=== PATIENT | female | born 1985 | race Caucasian/White ===

== ENCOUNTER 2016-11-25 21:22 | Emergency (ER) | payer BC ==
[2016-11-25 21:31] VITALS: BMI 22.2
[2016-11-25] MEDS ORDERED: ACETAMINOPHEN 1000 MG/100 ML VIAL (NON FORMULARY) IVPB ONE (22:21)
[2016-11-25 22:25] LABS: BASOPHIL 0.3 % (0-2.0); EOSINOPHIL 6.1 % (0-4.5); MCH 27.8 pg (25.7-33.7); MCHC 34.5 g/dl (32.0-36.0); MEAN CELL VOLUME 80.6 fl (80-96); MEAN PLT VOLUME 7.9 fl (7.5-11.1); NEUTROPHILS 67.5 % (42.8-82.8); PLATELET COUNT 325 K/MM3 (134-434); RDW 14.1 % (11.6-15.6); WHITE BLOOD COUNT 15.6 K/mm3 (4.0-10.0)
[2016-11-25] MEDS ORDERED: ACETAMINOPHEN INJECTION 100 ML IVPB ONE (22:25)
--- NOTE | 2016-11-25 22:26 | PDOC ---
History of Present Illness - General Chief Complaint: Pain Stated Complaint: Chest Pain Time Seen by Provider: 11/25/16 21:52 - History of Present Illness Initial Comments: 11/25/16 22:26 CHIEF COMPLAINT: HISTORY OF PRESENT ILLNESS: 31 yo F with hx of preecclampsia presents to ED with chest discomfort and shortness of breath since this afternoon at 2 pm. Patient states she felt palpitations earlier today but on interview she reports she is "feeling better now" and denies any current SOB or palpitations. No recent travel or sick contacts. PAST MEDICAL HISTORY: Denies past medical history FAMILY HISTORY: Denies SOCIAL HISTORY: Denies tobacco, alcohol, illicit drug use. SURGICAL HISTORY: Denies ALLERGIES: No known drug allergies REVIEW OF SYSTEMS General/Constitutional: Denies fever or chills. Denies weakness, weight change. HEENT: Denies change in vision. Denies ear pain or discharge. Denies sore throat. Cardiovascular: Denies chest pain or shortness of breath. Respiratory: Denies cough, wheezing, or hemoptysis. Gastrointestinal: Denies nausea, vomiting, diarrhea or constipation. Denies rectal bleeding. Genitourinary: Denies dysuria, frequency, or change in urination. Musculoskeletal: Denies joint or muscle swelling or pain. Denies neck or back pain. Skin and breasts: Denies rash or easy bruising. Neurologic: Denies headache, vertigo, loss of consciousness, or loss of sensation. PHYSICAL EXAM General Appearance: Well-appearing, appropriately dressed. No apparent distress , no intoxication. HEENT: EOMI, PERRLA, normal ENT inspection, normal voice, TMs normal, pharynx normal. No conjunctival pallor. No photophobia, scleral icterus. Neck: Supple. Trachea midline. No tenderness, rigidity, carotid bruit, stridor , lymphadenopathy, or thyromegaly. Respiratory/Chest: Lungs CTAB. No shortness of breath, chest tenderness, respiratory distress, accessory muscle use. No crackles, rales, rhonchi, stridor , wheezing, dullness Cardiovascular: RRR. S1, S2. No JVD, murmur, bradycardia, tachycardia. Vascular Pulses: Dorsalis-Pedis (R): 2+, Dorsalis-Pedis (L): 2+ Gastrointestinal/Abdominal: Normal bowel sounds. Abdomen soft, non-distended. No tenderness or rebound tenderness. No organomegaly, pulsatile mass, guarding , hernia, hepatomegaly, splenomegaly. Lymphatic: No adenopathy, tenderness. Musculoskeletal/Extremities: Normal inspection. FROM of all extremities, normal capillary refill. Pelvis Stable. No CVA tenderness. No tenderness to extremities, pedal edema, swelling, erythema or deformity. Integumentary: Appropriate color, dry, warm. No cyanosis, erythema, jaundice or rash Neurologic: quality assurance monitor chassis II-XII intact. Fully oriented, alert. Appropriate mood/affect. Motor strength 5/5. No appreciable EOM palsy, facial droop or sensory deficit. 11/25/16 23:25 Past History - Past Medical History Allergies/Adverse Reactions: Allergies Allergy/AdvReac Type Severity Reaction Status Date / Time labetalol Allergy Severe Hives Verified 11/25/16 21:28 No Known Drug Allergies Allergy Verified 11/25/16 21:28 AVACADO Allergy Severe HIVES, Uncoded 09/03/15 12:20 SWOLLEN TONGUE CASHEWS Allergy Severe HIVES, Uncoded 09/03/15 12:20 SWOLLEN TONGUE DUST Allergy ITCHING, Uncoded 09/03/15 12:20 HIVES Home Medications: Ambulatory Orders Vit #108/Iron/FA [ One Tablet] 1 each PO DAILY MDD 1 07/29/15 Ibuprofen [Motrin -] 600 mg PO TID #90 tablet 09/08/15 Anemia: No Asthma: No Cancer: No Cardiac Disorders: No CVA: No COPD: No CHF: No Dementia: No Diabetes: No GI Disorders: No Disorders: No HTN: Yes ( induced HTN) Hypercholesterolemia: No Liver Disease: No Seizures: No Thyroid Disease: No - Surgical History Abdominal Surgery: No Appendectomy: No Cardiac Surgery: No Cholecystectomy: No Lung Surgery: No Neurologic Surgery: No Orthopedic Surgery: No - Suicide/Smoking/Psychosocial Hx Smoking History: Never smoked Have you smoked in the past 12 months: No Information on smoking cessation initiated: No Hx Alcohol Use: No Drug/Substance Use Hx: No Substance Use Type: None Hx Substance Use Treatment: No Cardiac Specific PMH - Complaint Specific PMHX Pacemaker: No *Physical Exam - Vital Signs Last Vital Signs Temp Pulse Resp BP Pulse Ox 98.3 F 82 20 135/80 98 11/25/16 23:05 11/25/16 23:05 11/25/16 23:05 11/25/16 23:05 11/25/16 23:05 ED Treatment Course - LABORATORY CBC & Chemistry Diagram: 11/25/16 22:19 11/25/16 22:19 - ADDITIONAL ORDERS Additional order review: Laboratory Results 11/26/16 11/25/16 11/25/16 00:15 22:19 22:19 PT with INR 11.20 INR 0.99 PTT (Actin FS) 24.5 L D-Dimer < 200 Sodium Potassium Chloride Carbon Dioxide Anion Gap BUN Creatinine Creat Clearance w eGFR Random Glucose Calcium Total Bilirubin AST ALT Alkaline Phosphatase Total Protein Albumin Urine Color Ltyellow Urine Appearance Cloudy Urine pH 7.0 Urine Protein Negative Urine Glucose (UA) Negative Urine Ketones Negative Urine Blood Negative Urine Nitrite Negative Urine Bilirubin Negative Urine Urobilinogen Negative Blood Type B POSITIVE Antibody Screen Negative 11/25/16 22:19 PT with INR INR PTT (Actin FS) D-Dimer Sodium 140 Potassium 3.7 Chloride 102 Carbon Dioxide 25 Anion Gap 13 BUN 8 D Creatinine 0.4 L Creat Clearance w eGFR > 60 Random Glucose 101 D Calcium 9.5 Total Bilirubin 0.2 AST 16 D ALT 24 Alkaline Phosphatase 86 D Total Protein 7.4 Albumin 3.5 D Urine Color Urine Appearance Urine pH Urine Protein Urine Glucose (UA) Urine Ketones Urine Blood Urine Nitrite Urine Bilirubin Urine Urobilinogen Blood Type Antibody Screen 11/25/16 22:19 RBC 4.22 MCV 80.6 MCHC 34.5 RDW 14.1 MPV 7.9 D Neutrophils % 67.5 Lymphocytes % 18.0 D Monocytes % 8.1 Eosinophils % 6.1 H D Basophils % 0.3 - Medications Given in the ED: ED Medications Discontinued Medications Generic Name Dose Route Start Last Admin Trade Name Edsonq PRN Reason Stop Dose Admin Acetaminophen 1,000 mg 11/25/16 22:21 11/25/16 22:24 Ofirmev Injection - IVPB 11/25/16 22:22 1,000 mg ONCE ONE Administration Medical Decision Making - Medical Decision Making 11/25/16 23:27 31 yo F with hx of preecclampsia presents to ED with chest discomfort and shortness of breath since this afternoon at 2 pm. Patient VS remarkable for tachycardia to 127 and BP 164/109 -EKG -CBC, CMP, PT/INR, D-dimer D-dimer <200, PERC negative Patient VS repeated. HR 102, BP 137/92. Patient denies any complaints right now and reports no chest pain or SOB. Laboratory Tests 11/25/16 11/25/16 22:19 22:19 WBC 15.6 H Eosinophils % 6.1 H D PTT (Actin FS) 24.5 L D-Dimer < 200 WBC likely elevated secondary to . Labs otherwise unremarkable. Advised patient it is imperative that she follow up with Dr. Avalos TOMORROW and of signs and symptoms for return to ER; patient verbalized understanding and agrees to plan. *DC/Admit/Observation/Transfer Diagnosis at time of Disposition: Chest discomfort - Discharge Dispostion Disposition: HOME Condition at time of disposition: Improved Admit: No - Referrals Referrals: Jose Loya MD [Primary Care Provider] - Ralph Reich MD [Staff Physician] - - Patient Instructions Printed Discharge Instructions: DI for Atypical Chest Pain, Managing Symptoms of Additional Instructions: Please follow up with Damir this week as discussed. If you develop any new chest pain, shortness of breath, palpitations, swelling in either legs, or any new or worsening symptoms, please return to the ER.
[2016-11-25 23:01] LABS: INR 0.99 (0.82-1.09)
[2016-11-25 23:03] LABS: ACTIVATED PTT 24.5 SECONDS (26.9-34.4); D-DIMER < 200 ng/ml (<200-235)
[2016-11-25 23:05] LABS: ALBUMIN 3.5 g/dl (3.4-5.0); ALK PHOS 86 U/L (45-117); ANION GAP 13 (8-16); BILIRUBIN,TOTAL 0.2 mg/dL (0.2-1.0); CALCIUM 9.5 mg/dL (8.5-10.1); CO2 25 mmol/L (21-32); CREATININE 0.4 mg/dL (0.55-1.02); GLUCOSE,RANDOM 101 mg/dL (74-106); SGOT/AST 16 U/L (15-37); SGPT/ALT 24 U/L (12-78); TOT PROT 7.4 g/dl (6.4-8.2)
[2016-11-25 23:06] VITALS: BP 135/80; PULSE 82; TEMP 98.3
[2016-11-26 00:33] LABS: URINE APPEARANCE CLOUDY; URINE BILIRUBIN NEGATIVE (NEGATIVE); URINE BLOOD NEGATIVE (NEGATIVE); URINE COLOR LTYELLOW; URINE GLUCOSE (UA) NEGATIVE (NEGATIVE); URINE KETONE NEGATIVE (NEGATIVE); URINE NITRITE NEGATIVE (NEGATIVE); URINE PROTEIN NEGATIVE (NEGATIVE); URINE UROBILINOGEN NEGATIVE mg/dL (0.2-1.0)
[2016-11-26 12:09] LABS: URINE LEUK ESTERASE Negative (NEGATIVE)
--- NOTE | 2016-11-29 07:18 | EKG ---
Test Reason : Blood Pressure : / mmHG Vent. Rate : 118 BPM Atrial Rate : 118 BPM P-R Int : 150 ms QRS Dur : 082 ms QT Int : 336 ms P-R-T Axes : 065 075 008 degrees QTc Int : 470 ms SINUS TACHYCARDIA POSSIBLE LEFT ATRIAL ENLARGEMENT NONSPECIFIC T WAVE ABNORMALITY ABNORMAL ECG NO PREVIOUS ECGS AVAILABLE Confirmed by JANNETH WAYNE, JOSE LUIS ([id number]) on 11/29/2016 7:18:39 AM Referred By: Confirmed By:JOSE LUIS LAGUNAS MD
== END 2016-11-26 01:28 | disposition home or self-care (01) ==
LOC: JER 21:22
PROC: 3E033NZ Introduction of Analgesics, Hypnotics, Sedatives into Peripheral Vein, Percutaneous Approach (ICD-10-PCS; principal; 2016-11-25)
DX: R07.89 Other chest pain (principal)
CPT/HCPCS: 36415; 80053; 81003; 85025; 85379; 85610; 85730; 86850; 86900; 86901; 87086; 93005; 93010; 99283-25

== ENCOUNTER 2017-01-30 07:48 | Emergency (ER) | payer BC ==
[2017-01-30 07:54] VITALS: BMI 23.8
--- NOTE | 2017-01-30 08:55 | PDOC ---
History of Present Illness - General Chief Complaint: Shortness of Breath Stated Complaint: SHORTNESS OF BREATH, 22 wks preg Time Seen by Provider: 01/30/17 08:19 - History of Present Illness Initial Comments: 01/30/17 08:56 The patient is a 31 year old 22 week female with a history of HTN( borderline Pre-eclampsia) during her previous who presents for evaluation of SOB and chest tightness. The patient reports onset of SOB and sternal chest tightness earlier this morning with associated cough with deep inspiration. She called her OB Dr. Reich who recommended that she present to the ED for evaluation. The patient has had multiple presentations of the same symptoms over the past few months throughout her recently seen on 12/19 for these same symptoms. Work up at that time included a negative cta, d- dimer, and dopplers to rule out pulmonary embolism. The patient states that her symptoms are the same as her prior presentations and reports improvement in her symptoms on presentation to the ER. She denies any fevers, chills, headache , nausea, vomiting, abdominal pain, changes with urination or bowel movements, recent long travel or leg swelling. Past History - Past Medical History Allergies/Adverse Reactions: Allergies Allergy/AdvReac Type Severity Reaction Status Date / Time labetalol Allergy Severe Hives Verified 01/30/17 07:54 No Known Drug Allergies Allergy Verified 01/30/17 07:54 AVACADO Allergy Severe HIVES, Uncoded 01/30/17 07:54 SWOLLEN TONGUE CASHEWS Allergy Severe HIVES, Uncoded 01/30/17 07:54 SWOLLEN TONGUE DUST Allergy ITCHING, Uncoded 01/30/17 07:54 HIVES Home Medications: Ambulatory Orders Vit #108/Iron/FA [ One Tablet] 1 each PO DAILY MDD 1 07/29/15 Nifedipine [Nifedipine ER] 30 mg PO ASDIR PRN 01/30/17 Anemia: No Asthma: No Cancer: No Cardiac Disorders: No CVA: No COPD: No CHF: No DVT: No Dementia: No Diabetes: No GI Disorders: No Disorders: No HTN: Yes ( induced HTN) Hypercholesterolemia: No Liver Disease: No Seizures: No Thyroid Disease: No - Surgical History Abdominal Surgery: No Appendectomy: No Cardiac Surgery: No Cholecystectomy: No Lung Surgery: No Neurologic Surgery: No Orthopedic Surgery: No - Reproductive History Cervical CA: No Dysfunctional Uterine Bleeding: No Ectopic : No Endometrial CA: No Polycystic Ovaries: No - Immunization History Immunization Up to Date: Yes - Suicide/Smoking/Psychosocial Hx Smoking History: Never smoked Have you smoked in the past 12 months: No Information on smoking cessation initiated: No Hx Alcohol Use: No Drug/Substance Use Hx: No Substance Use Type: None Hx Substance Use Treatment: No Review of Systems - Review of Systems Comments:: 01/30/17 09:18 Constitutional: No fevers, chills, fatigue, malaise HEENT: No Rhinorrhea, nasal congestion, visual changes Cardiovascular: Chest tightness. No syncope, palpitations, lightheadedness Respiratory: Cough, SOB. No Hemoptysis, Gastrointestinal: No Abdominal pain, Nausea, Vomiting, Constipation, Diarrhea, Melena Genitourinary: No Dysuria, Frequency, Urgency, Hesitancy, Hematuria, Flank pain Musculoskeletal: No Myalgia, arthralgia Skin: No rashes, bruising, pallor Neurologic: No Headache, Dizziness, Numbness, Weakness, or Tingling Psychiatric: No Hallucinations. No SI or HI *Physical Exam - Vital Signs Last Vital Signs Temp Pulse Resp BP Pulse Ox 98.6 F 128 H 19 159/98 98 01/30/17 07:51 01/30/17 07:51 01/30/17 07:51 01/30/17 07:51 01/30/17 07:51 - Physical Exam Comments: 01/30/17 09:20 General Appearance: Nourished. No Apparent Distress HEENT: EOMI, ADRIAN. No Pharyngeal Erythema, Tonsillar Exudate, Tonsillar Erythema Neck: No Cervical Lymphadenopathy Respiratory/Chest: Lungs Clear, Normal Breath Sounds. Mild inspiratory wheezing. No Crackles, Rales, Rhonchi, Cardiovascular: Regular Rhythm, Tachycardic. No Murmur, Gallops, Rubs Gastrointestinal/Abdominal: Normal Bowel Sounds, Soft. No Guarding, Rebound, Tenderness Musculoskeletal: No CVA Tenderness Extremity: Normal Capillary Refill Integumentary: Normal Color, Dry, Warm Neurologic: Fully Oriented, Alert, Normal Mood/Affect, Normal Response, ED Treatment Course - LABORATORY CBC & Chemistry Diagram: 01/30/17 09:10 01/30/17 09:10 - RADIOLOGY Radiology Studies Ordered: Category Date Time Status DUPLEX VASCUL US-2LEGS [US] Stat Ultrasound 01/30/17 08:49 Ordered Medical Decision Making - Medical Decision Making 01/30/17 09:22 The patient is a 31 year old 22 week female with a history of HTN( borderline Pre-eclampsia) during her previous who presents for evaluation of SOB and chest tightness. Given the patient's recent complete PE work including negative doppler, d-dimer, and CTA as well as a presentation similar to her prior presentations, it is unlikely the patient's symptoms are due to a PE at this time. However we will obtain lower extremity doppers to evaluate for DVT. We will also obtain a cbc, cmp, troponin, and UA to evaluate for other etiologies. We will continue to monitor and reassess. 01/30/17 10:35 CBC demonstrates a known leukocytosis of 15. CMP, troponin, TSH, UA are unremarkable. DVT US is negative for DVT. The patient reports significant improvement in her symptoms and her tachycardia has improved to 100. We have paged Dr. Reich to discuss the case. We are comfortable sending the patient to L&D for further management and monitoring. *DC/Admit/Observation/Transfer Diagnosis at time of Disposition: Shortness of breath, Chest discomfort - Discharge Dispostion Disposition: HOME Condition at time of disposition: Improved Admit: No - Referrals Referrals: Jose Loya MD [Primary Care Provider] - Ralph Reich MD [Staff Physician] - - Patient Instructions Printed Discharge Instructions: DI for Shortness of Breath Additional Instructions: Please return to the ER if you experience concerning or worsening symptoms including worsening chest pain, coughing up blood, or worsening difficulty breathing. You were seen in the ER for shortness of breath and chest tightness. Your ultrasound results and lab results were unremarkable. We will be sending you to labor and delivery for monitoring. Please call to schedule a follow up appointment with your ob Dr. Reich to discuss your ER visit and further management of your symptoms. within 1 week. - Post Discharge Activity
[2017-01-30 09:17] LABS: BASO % 0.2 % (0-2.0); EOS % 4.2 % (0-4.5); MCH 27.4 pg (25.7-33.7); MCHC 33.3 g/dl (32.0-36.0); MEAN CELL VOLUME 82.3 fl (80-96); MEAN PLT VOLUME 8.3 fl (7.5-11.1); NEUT % 75.1 % (42.8-82.8); PLATELET COUNT 248 K/MM3 (134-434); RDW 14.4 % (11.6-15.6); WHITE BLOOD COUNT 15.6 K/mm3 (4.0-10.0)
[2017-01-30 09:21] LABS: URINE APPEARANCE CLOUDY; URINE BILIRUBIN NEGATIVE (NEGATIVE); URINE BLOOD NEGATIVE (NEGATIVE); URINE COLOR YELLOW; URINE GLUCOSE (UA) NEGATIVE (NEGATIVE); URINE KETONE NEGATIVE (NEGATIVE); URINE LEUK ESTERASE NEGATIVE (NEGATIVE); URINE NITRITE NEGATIVE (NEGATIVE); URINE PROTEIN NEGATIVE (NEGATIVE); URINE UROBILINOGEN NEGATIVE mg/dL (0.2-1.0)
[2017-01-30 09:33] LABS: ALBUMIN 3.1 g/dl (3.4-5.0); ALK PHOS 115 U/L (45-117); ANION GAP 9 (8-16); BILIRUBIN,TOTAL 0.1 mg/dL (0.2-1.0); CALCIUM 9.2 mg/dL (8.5-10.1); CO2 24 mmol/L (21-32); CREATININE 0.4 mg/dL (0.55-1.02); GLUCOSE,RANDOM 112 mg/dL (74-106); SGOT/AST 16 U/L (15-37); SGPT/ALT 20 U/L (12-78); TOT PROT 7.3 g/dl (6.4-8.2)
[2017-01-30 09:36] LABS: CPK 83 IU/L (26-192); TROPONIN I < 0.02 ng/ml (0.00-0.05)
--- NOTE | 2017-01-30 10:43 | PDOC ---
Attending Attestation - Resident Resident Name: MinnieZaid - ED Attending Attestation I have performed the following: I have examined & evaluated the patient, The case was reviewed & discussed with the resident, I agree w/resident's findings & plan, Exceptions are as noted - HPI HPI: 01/30/17 10:27 31-year-old female 22 weeks gestation with elevated blood pressures taking atropine as needed based on blood pressure readings presents with a third episode of palpitations. Prior ED visits with notable tachycardia and elevated blood pressures, PE has been ruled out via d-dimer, bilateral leg Dopplers, and most recently CTA chest. Patient's symptoms are improving now, notably hypertensive and tachycardic at triage. - Physicial Exam PE: 01/30/17 10:28 Vitals as noted, on my examination heart rate improved to 100 Exam is normal, lungs are clear, abdomen is gravid without tenderness, no signs of DVT - Medical Decision Making 01/30/17 10:29 Patient seen and evaluated with the resident. I agree with the overall evaluation, assessment, and management with the following summary of visit: 31y/o F 22wk gestation complicated by elevated BP readings with several negative PE workups presents now with similar exacerbation of palpitations. Low suspicion for PE given the negative workups with similar symptoms, ? pre- eclampsia, no Ob complaints. labs wnl, including TSH UA clear of protein repeat doppler negative VS normalized in the ED feels well, without complaints. Will transfer to L&D for further monitoring, discuss with Dr. Reich. 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
[2017-01-30 11:50] VITALS: TEMP 98.7
[2017-01-30 11:56] VITALS: BP 129/82; PULSE 105
[2017-01-30 14:38] LABS: URINE LEUK ESTERASE Negative (NEGATIVE)
--- NOTE | 2017-01-31 01:24 | EKG ---
Test Reason : Blood Pressure : / mmHG Vent. Rate : 118 BPM Atrial Rate : 118 BPM P-R Int : 114 ms QRS Dur : 082 ms QT Int : 334 ms P-R-T Axes : 065 074 014 degrees QTc Int : 468 ms SINUS TACHYCARDIA POSSIBLE LEFT ATRIAL ENLARGEMENT NONSPECIFIC T WAVE ABNORMALITY ABNORMAL ECG WHEN COMPARED WITH ECG OF 30-JAN-2017 08:09, NO SIGNIFICANT CHANGE WAS FOUND Confirmed by JOSE LUIS LAGUNAS MD ([id number]) on 01/31/2017 1:24:07 AM Referred By: Confirmed By:JOSE LUIS LAGUNAS MD
== END 2017-01-30 12:13 | disposition home or self-care (01) ==
LOC: JER 07:48
DX: O26.892 Other specified pregnancy related conditions, second trimester (principal); R07.1 Chest pain on breathing; R06.02 Shortness of breath; Z3A.22 22 weeks gestation of pregnancy
CPT/HCPCS: 36415; 80053; 81003; 82550; 84443; 84484; 85025; 93005; 93010; 93970-TC; 99283-25

== ENCOUNTER 2017-03-21 11:50 | Inpatient (IN) | payer BC ==
[2017-03-21 12:38] LABS: URINE APPEARANCE SLCLOUDY; URINE BILIRUBIN NEGATIVE (NEGATIVE); URINE BLOOD NEGATIVE (NEGATIVE); URINE COLOR YELLOW; URINE GLUCOSE (UA) NEGATIVE (NEGATIVE); URINE KETONE NEGATIVE (NEGATIVE); URINE LEUK ESTERASE NEGATIVE (NEGATIVE); URINE NITRITE NEGATIVE (NEGATIVE); URINE UROBILINOGEN NEGATIVE mg/dL (0.2-1.0)
[2017-03-21 12:44] LABS: URINE PROTEIN 2+ (NEGATIVE)
[2017-03-21 12:48] LABS: EPI CELLS RARE /HPF (FEW); URINE HYALINE CAST 1 /lpf; URINE MUCUS RARE
[2017-03-21 13:01] LABS: BASO % 0.4 % (0-2.0); EOS % 1.6 % (0-4.5); HEMOGLOBIN 12.1 GM/dL (10.7-15.3); LYMPH % 15.8 % (8-40); MCH 26.6 pg (25.7-33.7); MCHC 32.7 g/dl (32.0-36.0); MEAN CELL VOLUME 81.5 fl (80-96); MEAN PLT VOLUME 10.3 fl (7.5-11.1); MONO % 8.4 % (3.8-10.2); NEUT % 73.8 % (42.8-82.8); PLATELET COUNT 201 K/MM3 (134-434); RBC 4.54 M/mm3 (3.60-5.2); RDW 14.7 % (11.6-15.6); WHITE BLOOD COUNT 13.6 K/mm3 (4.0-10.0)
[2017-03-21 13:22] LABS: ALBUMIN 3.1 g/dl (3.4-5.0); ANION GAP 9 (8-16); BLOOD UREA NITROGEN 10 mg/dL (7-18); CALCIUM 9.9 mg/dL (8.5-10.1); CHLORIDE 99 mmol/L (98-107); CO2 29 mmol/L (21-32); CREATININE 0.4 mg/dL (0.55-1.02); GLUCOSE,RANDOM 73 mg/dL (74-106); POTASSIUM 4.4 mmol/L (3.5-5.1); SGOT/AST 20 U/L (15-37); SGPT/ALT 21 U/L (12-78); SODIUM 137 mmol/L (136-145); URIC ACID 3.5 mg/dL (2.6-7.2)
[2017-03-21 13:23] LABS: ALK PHOS 138 U/L (45-117); BILIRUBIN,TOTAL 0.4 mg/dL (0.2-1.0); LDH 251 U/L (84-246); TOT PROT 7.3 g/dl (6.4-8.2)
[2017-03-21] MEDS ORDERED: BETAMET ACET/BETAMET NA PH 30 MG/5 ML VIAL IM ONE (14:45)
[2017-03-21] MEDS ORDERED: BETAMET ACET/BETAMET NA PH 30 MG/5 ML VIAL ONE (15:20)
[2017-03-21] MEDS ORDERED: ELECTROLYTE-148 SOLN 1,000 ML IV SCH (15:30)
[2017-03-21 16:25] VITALS: BMI 26.6
[2017-03-21 16:52] LABS: INR 1.01 (0.82-1.09); PROTHROMBIN TIME (PATIENT) 11.4 SEC (9.98-11.88)
[2017-03-21 16:57] LABS: ANION GAP 9 (8-16); CALCIUM 9.1 mg/dL (8.5-10.1); CHLORIDE 102 mmol/L (98-107); CO2 25 mmol/L (21-32); CREATININE 0.4 mg/dL (0.55-1.02); GLUCOSE,RANDOM 74 mg/dL (74-106); POTASSIUM 4.4 mmol/L (3.5-5.1); SODIUM 136 mmol/L (136-145)
--- NOTE | 2017-03-21 18:22 | HP ---
Past Medical History - Primary Care Physician PCP:: Ralph Reich - Admission Chief Complaint: 32yo P1 with at EGA 29 3/7 wks with chronic HTN admitted to L&D for evaluation of possible superimposed preeclampsia. History of Present Illness: chronic HTN, using Procardia at home. Did not take the meds today. Asymptomatic today but has had headaces every day x 1 week Denies LOF or VB Known placenta previa and accreta. Pt is scheduled to see MFM at [facility] for transfer of care. History Source: Patient, Medical Record Limitations to Obtaining History: No Limitations - Past Medical History FUNERAL ARRANGER: No: Alzheimer's, CVA, Dementia, Migraine, Multiple Sclerosis, Peripheral Neuropathy, Parkinson's, Seizure, Syncope, TIA, Vertigo, Other Cardiovascular: Yes: HTN Pulmonary: No: Asthma, Bronchitis, Cancer, COPD, O2 Dependent, Pneumonia, Previously Intubated, Pulmonary Embolus, Pulmonary Fibrosis, Sleep Apnea, Other Gastrointestinal: No: Ascites, Cancer, Constipation, Crohn's Disease, Diverticulitis, Diverticulosis, Esophageal Varices, Gastritis, GERD, GI Bleed, Hemorrhoids, Hiatal Hernia, Inflamatory Bowel Disease, Irritable Bowel Disease, Pancreatitis, Peptic Ulcer Disease, Ulcerative Colitis, Other Hepatobiliary: No: Cirrhosis, Cholelithiasis, Cholecystitis, Choledocholithiasis , Hepatitis A, Hepatitis B, Hepatitis C, Other Renal/: No: Renal Failure, Renal Inusuff, BPH, Cancer, Hematuria, Hemodialysis , Neurogenic Bladder, Renal Calculi, UTI, Other Reproductive: No: Ectopic , Endometriosis, Fibroids, PID, Polycystic Ovary Syndrome, Postmenopausal, Other ...: 3 ...Para: 1 (Primary C/S at 36wks for PEC) ...Term: 1 ...: 0 ...Spon : 1 ...Induced : 0 ...Multiple Gestation: 0 ...LMP: 08/23/16 ... Weeks Gestation by Dates: 29.3 ...EDC by Dates: 05/30/17 ...EDC by Sono: 06/03/17 Heme/Onc: No: Anemia, B12 Deficiency, Bleeding Disorder, Cancer, Current Chemotherapy, Current Radiation Therapy, Hemochromatosis, Hypercoaguable State, Myeloproliferative Synd, Sickle Cell Disease, Sickle Cell Trait, Thrombocytopenia, Other Infectious Disease: No: AIDS, C-Diff, Herpes Zoster, HIV, MRSA, STD's, Tuberculosis, VREF, Other Psych: No: Addictions, Anxiety, Bipolar, Depression, Panic, Psychosis, Schizophrenia, Other Musculoskeletal: No: Bursitis, Chronic low back pain, Hemiparesis, Hemiplegia, Osteoarthritis, Paraplegia, Other Rheumatology: No: Fibromyalgia, Gout, Lupus, Rheumatoid Arthritis, Sarcoidosis, Vasculitis, Other ENT: No: Allergic Rhinitis, Sinusitis, Other Endocrine: No: Hidalgo's Disease, Edmond's Disease, Diabetes Insipidus, Diabetes Mellitus, Hyperparathyroidism, Hyperthyroidism, Hypothyroidism, Osteopenia, SIADH, Other Dermatology: No: Basal Cell, Cellulitis, Eczema, Melanoma, Psoriasis, Squamous Cell, Other - Past Surgical History Past Surgical History: Yes: (for PEC at 36wks) Hx Myomectomy: No Hx Transabdominal Cerclage: No - Smoking History Smoking history: Never smoked Have you smoked in the past 12 months: No - Alcohol/Substance Use Hx Alcohol Use: No History of Substance Use: reports: None - Social History Usual Living Arrangement: Yes: With Spouse, With Child ADL: Independent 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 History of Recent Travel: No Home Medications - Allergies Allergies/Adverse Reactions: Allergies Allergy/AdvReac Type Severity Reaction Status Date / Time labetalol Allergy Severe Hives Verified 03/04/17 16:43 AVACADO Allergy Severe HIVES, Uncoded 03/04/17 16:43 SWOLLEN TONGUE CASHEWS Allergy Severe HIVES, Uncoded 03/04/17 16:43 SWOLLEN TONGUE DUST Allergy ITCHING, Uncoded 03/04/17 16:43 HIVES - Home Medications Home Medications: Ambulatory Orders Vit 108/Iron/Folic AC [ One Tablet] 1 each PO DAILY MDD 1 07/28 Nifedipine [Nifedipine ER] 30 mg PO ASDIR PRN 01/30/17 Review of Systems - Review of Systems Constitutional: reports: No Symptoms Eyes: reports: No Symptoms HENT: reports: No Symptoms Neck: reports: No Symptoms Cardiovascular: reports: No Symptoms Respiratory: reports: No Symptoms Gastrointestinal: reports: No Symptoms Genitourinary: reports: No Symptoms Breasts: reports: No Symptoms Reported Musculoskeletal: reports: No Symptoms Integumentary: reports: No Symptoms Neurological: reports: No Symptoms Endocrine: reports: No Symptoms Hematology/Lymphatic: reports: No Symptoms Psychiatric: reports: No Symptoms Pain Intensity: 0 Physical Exam - Maternity Vital Signs: Vital Signs Temperature 97.7 F 03/21/17 18:05 Pulse Rate 95 H 03/21/17 18:05 Respiratory Rate 20 03/21/17 18:05 Blood Pressure 165/89 03/21/17 18:05 O2 Sat by Pulse Oximetry (%) Constitutional: Yes: Well Nourished, No Distress, Calm Eyes: Yes: WNL, Conjunctiva Clear, EOM Intact HENT: Yes: WNL, Atraumatic, Normocephalic Neck: Yes: WNL, Supple, Trachea Midline Cardiovascular: Yes: WNL, Regular Rate and Rhythm Lungs: Clear to auscultation, Normal air movement Breast(s): Yes: WNL - Abdominal Exam/OB Fundal Height: 30 Number of Fetuses: Single Contractions: No - Vaginal Exam/OB Vaginal Bleediing: No Station: -4 - Physical Exam Musculoskeletal: Yes: WNL Extremities: Yes: WNL Edema: No Integumentary: Yes: WNL Deep Tendon Reflex Grade: Normal +2 ...Motor Strength: WNL Psychiatric: Yes: WNL, Alert, Oriented - Labs Lab Results: CBC, BMP 03/21/17 12:40 03/21/17 15:00 Hemorrhage Risk Assessment - Risk Factors Medium Risk Factors: Yes: Prior , uterine surgery,or multiple laparotomies High Risk Factors: Yes: Placenta previa, low lying, Suspected accreta/ percreta Risk Score: 5 Risk Level: High Risk Imaging - Results Ultrasound: Report Reviewed Assessment/Plan 32yo P1 with at EGA 29 3/7 wks with chronic HTN admitted to L&D for evaluation of possible superimposed preeclampsia. Pt was admitted to L&D Labs are normal BP is very high, in severe preeclampsia range. She was given Mag Sulphate IV and the BP came down to 147/90's range. Plan to monitor BP and arrange for transfer to [facility].
[2017-03-21] MEDS ORDERED: MAGNESIUM 4GM/H20 - 4 GM/100 ML IVPB IVPB SCH (18:30)
[2017-03-21] MEDS ORDERED: hydrALAZINE HCL 20 MG/ML VIAL ONE (18:30)
[2017-03-21] MEDS ORDERED: MAGNESIUM 4GM/H20 - 4 GM/100 ML IVPB IVPB ONE (18:30)
[2017-03-21] MEDS ORDERED: MAGNESIUM SULFATE 20GM/500ML - 20 GM/500 ML INFUS.BAG IVPB SCH (18:30)
[2017-03-21] MEDS ORDERED: hydrALAZINE HCL 20 MG/ML VIAL IVPUSH ONE (18:45)
[2017-03-21] MEDS ORDERED: MAGNESIUM SULFATE 20GM/500ML - 20 GM/500 ML INFUS.BAG ONE (19:03)
[2017-03-21 20:45] VITALS: TEMP 98
[2017-03-21 22:11] VITALS: BP 125/93; PULSE 104
[2017-03-21 22:51] LABS: BLOOD UREA NITROGEN 11 mg/dL (7-18)
== END 2017-03-21 21:50 | disposition short-term general hospital (02) | DRG 782 ==
LOC: JDEL 11:50 → JLDR 14:30
PROVIDERS: ADMIT Obstetrics & Gynecology; ATTEND Obstetrics & Gynecology
DX: O14.14 Severe pre-eclampsia complicating childbirth (principal); Z3A.29 29 weeks gestation of pregnancy
CPT/HCPCS: 36415; 80048; 80053; 81003; 81015; 83615; 84550; 85025; 85384; 85610; 85730; 86850; 86900; 86901; 96372

== ENCOUNTER 2017-11-30 19:29 | Emergency (ER) | payer BC ==
[2017-11-30 20:15] VITALS: TEMP 98.7; BMI 23.8
--- NOTE | 2017-11-30 20:18 | PDOC ---
Rapid Medical Evaluation Time Seen by Provider: 11/30/17 20:13 Medical Evaluation: Allergies Allergy/AdvReac Type Severity Reaction Status Date / Time labetalol Allergy Severe Hives Verified 03/04/17 16:43 AVACADO Allergy Severe HIVES, Uncoded 03/04/17 16:43 SWOLLEN TONGUE CASHEWS Allergy Severe HIVES, Uncoded 03/04/17 16:43 SWOLLEN TONGUE DUST Allergy ITCHING, Uncoded 03/04/17 16:43 HIVES 11/30/17 20:14 Pt presents to the ED for headache, high bp and palpitations since yesterday. States she saw her doctors for here symptoms yesterday and said if they persisted to return to the ED for further evaluation Exam: BP190/112, No gross neuro deficits Orders: Labs, EKG Pt to proceed to ED for further evaluation Discharge Disposition - Diagnosis Palpitations - Referrals - Patient Instructions - Post Discharge Activity
[2017-11-30 21:31] LABS: BASO % 0.3 % (0-2.0); EOS % 4.4 % (0-4.5); HEMATOCRIT 39.6 % (32.4-45.2); HEMOGLOBIN 13.4 GM/dL (10.7-15.3); LYMPH % 25.4 % (8-40); MCH 26.9 pg (25.7-33.7); MCHC 33.9 g/dl (32.0-36.0); MEAN CELL VOLUME 79.3 fl (80-96); MEAN PLT VOLUME 8.2 fl (7.5-11.1); MONO % 7.1 % (3.8-10.2); NEUT % 62.8 % (42.8-82.8); PLATELET COUNT 334 K/MM3 (134-434); RBC 4.99 M/mm3 (3.60-5.2); WHITE BLOOD COUNT 10.9 K/mm3 (4.0-10.0)
[2017-11-30] MEDS ORDERED: NIFEdipine 10 MG CAPSULE (FP) PO ONE (21:37)
[2017-11-30] MEDS ORDERED: METOCLOPRAMIDE HCL INJECTION 10 MG/2 ML VIAL IVPUSH ONE (21:37)
[2017-11-30] MEDS ORDERED: ACETAMINOPHEN 1000 MG/100 ML VIAL (NON FORMULARY) IVPB ONE (21:38)
[2017-11-30 21:40] LABS: URINE APPEARANCE SLCLOUDY; URINE BILIRUBIN NEGATIVE (<2.0 mg/dL); URINE COLOR YELLOW; URINE GLUCOSE (UA) NEGATIVE (NEGATIVE); URINE KETONE NEGATIVE (NEGATIVE); URINE LEUK ESTERASE NEGATIVE (NEGATIVE); URINE NITRITE NEGATIVE (NEGATIVE); URINE PROTEIN NEGATIVE (NEGATIVE)
[2017-11-30] MEDS ORDERED: ACETAMINOPHEN INJECTION 100 ML IVPB ONE (21:43)
[2017-11-30] MEDS ORDERED: METOCLOPRAMIDE HCL INJECTION 10 MG/2 ML VIAL ONE (21:43)
[2017-11-30 22:22] LABS: ALBUMIN 3.8 g/dl (3.4-5.0); ALK PHOS 153 U/L (45-117); ANION GAP 4 MMOL/L (8-16); BILIRUBIN,TOTAL 0.2 mg/dL (0.2-1); BLOOD UREA NITROGEN 9 mg/dL (7-18); CALCIUM 9.1 mg/dL (8.5-10.1); CHLORIDE 105 mmol/L (98-107); CO2 27 mmol/L (21-32); CREATININE 0.6 mg/dL (0.55-1.3); GLUCOSE,RANDOM 105 mg/dL (74-106); MAGNESIUM 2.2 mg/dL (1.8-2.4); POTASSIUM 3.9 mmol/L (3.5-5.1); SGOT/AST 16 U/L (15-37); SGPT/ALT 27 U/L (13-61); SODIUM 137 mmol/L (136-145)
[2017-11-30 22:37] LABS: INR 1.09 (0.83-1.09); PROTHROMBIN TIME (PATIENT) 12.9 SEC (9.7-13.0)
[2017-11-30 23:52] VITALS: BP 140/92; PULSE 81
--- NOTE | 2017-12-01 01:51 | PDOC ---
History of Present Illness - General Chief Complaint: Palpitations Stated Complaint: PALPITATIONS Time Seen by Provider: 11/30/17 20:13 Past History - Past Medical History Allergies/Adverse Reactions: Allergies Allergy/AdvReac Type Severity Reaction Status Date / Time labetalol Allergy Severe Hives Verified 11/30/17 20:18 AVACADO Allergy Severe HIVES, Uncoded 11/30/17 20:18 SWOLLEN TONGUE CASHEWS Allergy Severe HIVES, Uncoded 11/30/17 20:18 SWOLLEN TONGUE DUST Allergy ITCHING, Uncoded 11/30/17 20:18 HIVES Home Medications: Ambulatory Orders Vit 108/Iron/Folic AC [ One Tablet] 1 each PO DAILY MDD 1 07/28 Nifedipine [Nifedipine ER] 30 mg PO ASDIR PRN 01/30/17 Anemia: No Asthma: No Cancer: No Cardiac Disorders: No CVA: No COPD: No CHF: No DVT: No Dementia: No Diabetes: No GI Disorders: No Disorders: No HTN: Yes Hypercholesterolemia: No Liver Disease: No Seizures: No Thyroid Disease: No Other medical history: PRE ECLAMPSIA - Surgical History Abdominal Surgery: No Appendectomy: No Cardiac Surgery: No Cholecystectomy: No Lung Surgery: No Neurologic Surgery: No Orthopedic Surgery: No - Reproductive History Cervical CA: No Dysfunctional Uterine Bleeding: No Ectopic : No Endometrial CA: No Polycystic Ovaries: No - Immunization History Immunization Up to Date: Yes - Suicide/Smoking/Psychosocial Hx Smoking History: Never smoked Have you smoked in the past 12 months: No Hx Alcohol Use: No Drug/Substance Use Hx: No Substance Use Type: None Hx Substance Use Treatment: No *Physical Exam - Vital Signs Last Vital Signs Temp Pulse Resp BP Pulse Ox 98.7 F 81 20 140/92 99 11/30/17 20:12 11/30/17 23:51 11/30/17 23:51 11/30/17 23:51 11/30/17 23:51 ED Treatment Course - LABORATORY CBC & Chemistry Diagram: 11/30/17 21:16 11/30/17 21:16 - ADDITIONAL ORDERS Additional order review: Laboratory Results 11/30/17 11/30/17 11/30/17 21:16 21:16 21:15 PT with INR 12.90 INR 1.09 Sodium 137 Potassium 3.9 Chloride 105 Carbon Dioxide 27 Anion Gap 4 L BUN 9 Creatinine 0.6 Creat Clearance w eGFR > 60 Random Glucose 105 Calcium 9.1 Magnesium 2.2 Total Bilirubin 0.2 AST 16 ALT 27 Alkaline Phosphatase 153 H Creatine Kinase Troponin I Total Protein 8.0 Albumin 3.8 TSH 0.89 Urine Color Urine Appearance Urine pH Ur Specific [place] Urine Protein Urine Glucose (UA) Urine Ketones Urine Blood Urine Nitrite Urine Bilirubin Urine Urobilinogen Ur Leukocyte Esterase Urine HCG, Qual Negative 11/30/17 11/30/17 21:15 21:00 PT with INR INR Sodium Potassium Chloride Carbon Dioxide Anion Gap BUN Creatinine Creat Clearance w eGFR Random Glucose Calcium Magnesium Total Bilirubin AST ALT Alkaline Phosphatase Creatine Kinase 142 Troponin I < 0.02 Total Protein Albumin TSH Urine Color Yellow Urine Appearance Slcloudy Urine pH 6.0 D Ur Specific [place] 1.027 Urine Protein Negative Urine Glucose (UA) Negative Urine Ketones Negative Urine Blood Negative Urine Nitrite Negative Urine Bilirubin Negative Urine Urobilinogen 2.0 H Ur Leukocyte Esterase Negative Urine HCG, Qual 11/30/17 21:16 RBC 4.99 MCV 79.3 L MCHC 33.9 RDW 14.0 MPV 8.2 D Neutrophils % 62.8 Lymphocytes % 25.4 D Monocytes % 7.1 Eosinophils % 4.4 D Basophils % 0.3 - RADIOLOGY Radiology Studies Ordered: Category Date Time Status HEAD CT WITHOUT CONTRAST [CT] Stat CT Scan 12/01/17 01:00 Taken - Medications Given in the ED: ED Medications Discontinued Medications Generic Name Dose Route Start Last Admin Trade Name Freq PRN Reason Stop Dose Admin Acetaminophen 1,000 mg 11/30/17 21:38 11/30/17 21:50 Ofirmev Injection - IVPB 11/30/17 21:39 1,000 mg ONCE ONE Administration Diphenhydramine HCl 25 mg 11/30/17 22:22 11/30/17 22:24 Benadryl Injection - IVPUSH 11/30/17 22:23 25 mg ONCE ONE Administration Metoclopramide HCl 10 mg 11/30/17 21:37 11/30/17 21:50 Reglan Injection - IVPUSH 11/30/17 21:38 10 mg ONCE ONE Administration Nifedipine 10 mg 11/30/17 21:37 11/30/17 22:15 Procardia Capsule - PO 11/30/17 21:38 10 mg ONCE ONE Administration *DC/Admit/Observation/Transfer Diagnosis at time of Disposition: Palpitations Headache Qualifiers: Headache chronicity pattern: acute headache Intractability: not intractable - Discharge Dispostion Disposition: HOME Condition at time of disposition: Good Decision to Admit order: No - Referrals Referrals: Jose Loya MD [Primary Care Provider] - - Patient Instructions Printed Discharge Instructions: DI for Headache, DI for Palpitations Additional Instructions: Return to the ED for severe pain, pain with fever, passing out or confusion, weakness on one side of the body or face. Make sure that you follow up with your doctor, and that you restart your nifedipine. - Post Discharge Activity
--- NOTE | 2017-12-01 09:25 | EKG ---
Test Reason : Blood Pressure : / mmHG Vent. Rate : 098 BPM Atrial Rate : 098 BPM P-R Int : 148 ms QRS Dur : 080 ms QT Int : 334 ms P-R-T Axes : 069 061 -34 degrees QTc Int : 426 ms NORMAL SINUS RHYTHM POSSIBLE LEFT ATRIAL ENLARGEMENT T WAVE ABNORMALITY, CONSIDER INFERIOR ISCHEMIA ABNORMAL ECG WHEN COMPARED WITH ECG OF 30-JAN-2017 08:09, T WAVE INVERSION NOW EVIDENT IN ANTERIOR LEADS Confirmed by LEONILA HUI MD ([id number]) on 12/01/2017 9:25:29 AM Referred By: Confirmed By:LEONILA HUI MD
== END 2017-12-01 02:00 | disposition home or self-care (01) ==
LOC: JER 19:29
PROC: 3E033NZ Introduction of Analgesics, Hypnotics, Sedatives into Peripheral Vein, Percutaneous Approach (ICD-10-PCS; principal; 2017-11-30)
PROC: 3E033GC Introduction of Other Therapeutic Substance into Peripheral Vein, Percutaneous Approach (ICD-10-PCS; 2017-11-30)
PROC: 3E033GC Introduction of Other Therapeutic Substance into Peripheral Vein, Percutaneous Approach (ICD-10-PCS; 2017-11-30)
DX: I10 Essential (primary) hypertension (principal); R00.2 Palpitations; R51 Headache
CPT/HCPCS: 36415; 70450-TC; 71046-TC-FY; 80053; 81003; 82550; 83735; 84443; 84484; 84703; 85025; 85610; 93005; 93010; 99284-25; J0131

== ENCOUNTER 2018-02-14 12:45 | Emergency (ER) | payer BC ==
[2018-02-14 13:02] VITALS: BMI 23.4
--- NOTE | 2018-02-14 13:35 | PDOC ---
History of Present Illness - General Chief Complaint: Blood Pressure Problem Stated Complaint: Blood Pressure Problem Time Seen by Provider: 02/14/18 13:03 - History of Present Illness Initial Comments: 02/14/18 14:17 Patient is a 33 yo female w/ pmh of HTN and pre-eclampsia during previous (still on antihypertensives) who presents for evaluation of headache this morning. Patient reports she took tylenol and went to work whereupon her headache got worse and was complicated with spots in vision and chest tightness (now resolved). Patient reports she took BP at work and noted it to be elevated to 150's as well. Presents to ER upon advice of PCP. The patient denies chest pain, shortness of breath, and dizziness. Denies fever , chills, nausea, vomit, diarrhea and constipation. Denies dysuria, frequency, urgency and hematuria. Past History - Past Medical History Allergies/Adverse Reactions: Allergies Allergy/AdvReac Type Severity Reaction Status Date / Time labetalol Allergy Severe Hives Verified 11/30/17 20:18 AVACADO Allergy Severe HIVES, Uncoded 11/30/17 20:18 SWOLLEN TONGUE CASHEWS Allergy Severe HIVES, Uncoded 11/30/17 20:18 SWOLLEN TONGUE DUST Allergy ITCHING, Uncoded 11/30/17 20:18 HIVES Home Medications: Ambulatory Orders Azilsartan Medoxomil [Edarbi] 80 mg PO DAILY 02/14/18 Nifedipine [Procardia Xl] 60 mg PO DAILY 02/14/18 Anemia: No Asthma: No Cancer: No Cardiac Disorders: No CVA: No COPD: No CHF: No DVT: No Dementia: No Diabetes: No GI Disorders: No Disorders: No HTN: Yes Hypercholesterolemia: No Liver Disease: No Seizures: No Thyroid Disease: No - Surgical History Abdominal Surgery: No Appendectomy: No Cardiac Surgery: No Cholecystectomy: No Lung Surgery: No Neurologic Surgery: No Orthopedic Surgery: No - Reproductive History Cervical CA: No Dysfunctional Uterine Bleeding: No Ectopic : No Endometrial CA: No Polycystic Ovaries: No - Immunization History Immunization Up to Date: Yes - Suicide/Smoking/Psychosocial Hx Smoking History: Never smoked Have you smoked in the past 12 months: No Hx Alcohol Use: No Drug/Substance Use Hx: No Substance Use Type: None Hx Substance Use Treatment: No Review of Systems - Review of Systems Comments:: 02/14/18 14:19 GENERAL/CONSTITUTIONAL: No fever or chills. No weakness. HEAD, EYES, EARS, NOSE AND THROAT: +Spots in vision now resolved. No ear pain or discharge. No sore throat. CARDIOVASCULAR: +Chest pressure now resolved. No shortness of breath RESPIRATORY: No cough, wheezing, or hemoptysis. GASTROINTESTINAL: No nausea, vomiting, diarrhea or constipation. GENITOURINARY: No dysuria, frequency, or change in urination. MUSCULOSKELETAL: No joint or muscle swelling or pain. No neck or back pain. SKIN: No rash NEUROLOGIC: +Headache as described. No vertigo, loss of consciousness, or change in strength/sensation. ENDOCRINE: No increased thirst. No abnormal weight change HEMATOLOGIC/LYMPHATIC: No anemia, easy bleeding, or history of blood clots. ALLERGIC/IMMUNOLOGIC: No hives or skin allergy. *Physical Exam - Vital Signs Last Vital Signs Temp Pulse Resp BP Pulse Ox 92 H 18 129/82 100 02/14/18 13:29 02/14/18 13:29 02/14/18 13:29 02/14/18 13:29 - Physical Exam Comments: 02/14/18 14:20 GENERAL: Awake, alert, and fully oriented, in no acute distress HEAD: No signs of trauma, normocephalic, atraumatic EYES: PERRLA, EOMI, sclera anicteric, conjunctiva clear ENT: Auricles normal inspection, hearing grossly normal, nares patent, oropharynx clear without exudates. Moist mucosa NECK: Normal ROM, supple, no lymphadenopathy, JVD, or masses LUNGS: No distress, speaks full sentences, clear to auscultation bilaterally HEART: Regular rate and rhythm, normal S1 and S2, no murmurs, rubs or gallops, peripheral pulses normal and equal bilaterally. ABDOMEN: Soft, nontender, normoactive bowel sounds. No guarding, no rebound. No masses EXTREMITIES: Normal inspection, Normal range of motion, no edema. No clubbing or cyanosis. NEUROLOGICAL: Cranial nerves II through XII grossly intact. Normal speech, normal gait, no focal sensorimotor deficits SKIN: Warm, Dry, normal turgor, no rashes or lesions noted. Moderate Sedation - Procedure Monitoring Vital Signs: Procedure Monitoring Vital Signs Temperature Pulse Rate 92 H 02/14/18 13:29 Respiratory Rate 18 02/14/18 13:29 Blood Pressure 129/82 02/14/18 13:29 O2 Sat by Pulse Oximetry (%) 100 02/14/18 13:29 ED Treatment Course - LABORATORY CBC & Chemistry Diagram: 02/14/18 14:00 02/14/18 14:00 Medical Decision Making - Medical Decision Making 02/14/18 14:46 Ms. Andrews is a 33 yo female w/ pmh as described who presents for evaluation of headache complicated by elevated BP w/ chest pressure/ temporary vision "spots." Patient reporting symptoms mostly transient with only headache remaining at presentation. Patient has had similar presentations in the past for same headache symptoms. Patient BP elevated upon arrival however normalized shortly after without intervention. EKG regular rate, regular rhythm, normal access, normal interval, no ST elevations or depressions. Normal EKG. Labs sent for electrolyte / H/H evaluation as well as troponin. Patient reporting relief from symptoms following 1L NS and IV reglan. 02/14/18 15:50 Labs grossly wnl. No concern for acute process at this time. Attempted to contact PCP however unable to as on vacation. Discharging to home for outpatient f/u. Laboratory Results - last 24 hr 02/14/18 02/14/18 02/14/18 14:00 14:00 14:09 WBC 9.7 RBC 4.86 Hgb 13.2 Hct 39.3 MCV 80.9 MCH 27.2 MCHC 33.6 RDW 15.0 Plt Count 427 D MPV 7.9 Absolute Neuts (auto) 5.3 Neutrophils % 54.9 Lymphocytes % 29.0 Monocytes % 7.3 Eosinophils % 7.8 H Basophils % 1.0 D Nucleated RBC % 0 Sodium 137 Potassium 4.0 Chloride 104 Carbon Dioxide 27 Anion Gap 6 L BUN 12 Creatinine 0.6 Creat Clearance w eGFR > 60 Random Glucose 84 Calcium 9.1 Total Bilirubin 0.2 AST 25 ALT 32 Alkaline Phosphatase 134 H Creatine Kinase 213 H Creatine Kinase Index 1.2 CK-MB (CK-2) 2.6 Troponin I < 0.02 Total Protein 8.2 Albumin 4.0 Urine Color Straw Urine Appearance Clear Urine pH 7.0 Ur Specific [place] 1.005 L Urine Protein Negative Urine Glucose (UA) Negative Urine Ketones Negative Urine Blood Negative Urine Nitrite Negative Urine Bilirubin Negative Urine Urobilinogen Negative Ur Leukocyte Esterase Negative Urine HCG, Qual Negative *DC/Admit/Observation/Transfer Diagnosis at time of Disposition: Headache Qualifiers: Headache type: unspecified Headache chronicity pattern: unspecified pattern Intractability: not intractable Qualified Code(s): R51 - Headache - Discharge Dispostion Disposition: HOME - Referrals Referrals: Jose Loya MD [Primary Care Provider] - - Patient Instructions Printed Discharge Instructions: DI for High Blood Pressure Additional Instructions: You were evaluated today in the ER for your headache and chest pressure. No concerning findings were found at this time and your symptoms resolved without intervention. Please follow-up with primary care provider later this week for further evaluation. Return to ER if any fever, chills, return of symptoms, or other concerning developments. - Post Discharge Activity
--- NOTE | 2018-02-14 13:53 | PDOC ---
Attending Attestation - HPI HPI: 02/14/18 14:39 The patient is a 31 year old female with a history of HTN (borderline Preeclampsia during her previous ) who presents for evaluation of high BP with associated headache, chest pressure, and visual spots while at work today. She states she takes her BP meds around 3PM daily. She states her symptoms are exactly related to her BP and denies any symptoms now. The patient denies shortness of breath, and dizziness. The patient denies fever , chills, nausea, vomit, diarrhea and constipation. The patient denies dysuria, frequency, urgency and hematuria. Allergies:labetalol PCP - Dr. Loya - Physicial Exam PE: 02/14/18 14:42 GENERAL: The patient is in no acute distress. HEAD: Normal with no signs of trauma. EYES: PERRLA, EOMI, sclera anicteric, conjunctiva clear. ENT: Ears normal, nares patent, oropharynx clear without exudates. Moist mucous membranes. NECK: Normal range of motion, supple without lymphadenopathy, JVD, or masses. LUNGS: Breath sounds equal, clear to auscultation bilaterally. No wheezes, and no crackles. HEART:Regular rate and rhythm, normal S1 and S2 without murmur, rub or gallop. ABDOMEN: Soft, nontender, normoactive bowel sounds. No guarding, no rebound. No masses palpable. EXTREMITIES: Normal range of motion, no edema. No clubbing or cyanosis. No erythema, or tenderness. NEUROLOGICAL: Cranial nerves II through XII grossly intact. Normal speech. No focal neurological deficits. MUSCULOSKELETAL: Back non-tender to palpation, no CVA tenderness SKIN: Warm, Dry, normal turgor, no rashes or lesions noted. - Medical Decision Making 02/14/18 14:42 Documentation prepared by Jenniffer Drummond, acting as medical reception specialist for Radha Wood MD <Jenniffer Drummond - Last Filed: 02/14/18 14:39> - Resident Resident Name: Teodoro Steele - ED Attending Attestation I have performed the following: I have examined & evaluated the patient, The case was reviewed & discussed with the resident, I agree w/resident's findings & plan, Exceptions are as noted - Medical Decision Making 02/14/18 13:58 EKG - NSR rate of 94 bpm, axis nml, no st elevation or depression, t waves upright 02/14/18 14:43 Laboratory Tests 02/14/18 02/14/18 14:00 14:09 WBC 9.7 Hgb 13.2 Hct 39.3 Plt Count 427 D Urine Blood Negative Urine Nitrite Negative Ur Leukocyte Esterase Negative Urine HCG, Qual Negative 02/14/18 15:53 Pt BP improved Pt feels better Pt refused IV PMD contacted, not available Will discharge to home Will ask pt to follow up with PMD <Radha Wood - Last Filed: 02/16/18 07:50>
[2018-02-14] MEDS ORDERED: METOCLOPRAMIDE HCL INJECTION 10 MG/2 ML VIAL IVPUSH ONE (13:54)
[2018-02-14] MEDS ORDERED: SODIUM CHLORIDE 1,000 ML IV STA (13:55)
[2018-02-14] MEDS ORDERED: METOCLOPRAMIDE HCL INJECTION 10 MG/2 ML VIAL ONE (13:59)
[2018-02-14 14:22] LABS: EOS % 7.8 % (0-4.5); HEMATOCRIT 39.3 % (32.4-45.2); HEMOGLOBIN 13.2 GM/dL (10.7-15.3); MCH 27.2 pg (25.7-33.7); MCHC 33.6 g/dl (32.0-36.0); MEAN CELL VOLUME 80.9 fl (80-96); MEAN PLT VOLUME 7.9 fl (7.5-11.1); MONO % 7.3 % (3.8-10.2); NEUT % 54.9 % (42.8-82.8); PLATELET COUNT 427 K/MM3 (134-434); RBC 4.86 M/mm3 (3.60-5.2); WHITE BLOOD COUNT 9.7 K/mm3 (4.0-10.0)
[2018-02-14 14:26] LABS: URINE APPEARANCE CLEAR; URINE BILIRUBIN NEGATIVE (<2.0 mg/dL); URINE COLOR STRAW; URINE GLUCOSE (UA) NEGATIVE (NEGATIVE); URINE KETONE NEGATIVE (NEGATIVE); URINE LEUK ESTERASE NEGATIVE (NEGATIVE); URINE NITRITE NEGATIVE (NEGATIVE); URINE PROTEIN NEGATIVE (NEGATIVE); URINE UROBILINOGEN NEGATIVE mg/dL (0.2-1.0)
[2018-02-14 14:41] LABS: HCG,QUALITATIVE URINE Negative
[2018-02-14 14:51] LABS: ALK PHOS 134 U/L (45-117); ANION GAP 6 MMOL/L (8-16); BILIRUBIN,TOTAL 0.2 mg/dL (0.2-1); BLOOD UREA NITROGEN 12 mg/dL (7-18); CALCIUM 9.1 mg/dL (8.5-10.1); CHLORIDE 104 mmol/L (98-107); CO2 27 mmol/L (21-32); CREATININE 0.6 mg/dL (0.55-1.3); GLUCOSE,RANDOM 84 mg/dL (74-106); SGOT/AST 25 U/L (15-37); SGPT/ALT 32 U/L (13-61); SODIUM 137 mmol/L (136-145); TOT PROT 8.2 g/dl (6.4-8.2)
[2018-02-14 15:46] VITALS: BP 126/83; PULSE 89
--- NOTE | 2018-02-14 18:11 | EKG ---
Test Reason : Blood Pressure : / mmHG Vent. Rate : 094 BPM Atrial Rate : 094 BPM P-R Int : 132 ms QRS Dur : 084 ms QT Int : 346 ms P-R-T Axes : 063 056 025 degrees QTc Int : 432 ms NORMAL SINUS RHYTHM POSSIBLE LEFT ATRIAL ENLARGEMENT BORDERLINE ECG WHEN COMPARED WITH ECG OF 30-NOV-2017 20:16, T WAVE INVERSION NO LONGER EVIDENT IN INFERIOR LEADS T WAVE INVERSION NO LONGER EVIDENT IN ANTERIOR LEADS Confirmed by LUZMARIA IQBAL MD ([id number]) on 02/14/2018 6:10:49 PM Referred By: Confirmed By:LUZMARIA IQBAL MD
== END 2018-02-14 15:56 | disposition home or self-care (01) ==
LOC: JER 12:45
PROC: 3E033GC Introduction of Other Therapeutic Substance into Peripheral Vein, Percutaneous Approach (ICD-10-PCS; principal; 2018-02-14)
DX: R51 Headache (principal); I10 Essential (primary) hypertension
CPT/HCPCS: 36415; 80053; 81003; 82550; 82553; 84484; 84703; 85025; 87077; 87086; 93005; 93010; 99284-25

== ENCOUNTER 2018-10-13 18:07 | Emergency (ER) | payer BC ==
[2018-10-13 18:13] VITALS: BMI 23.8
--- NOTE | 2018-10-13 19:04 | PDOC ---
History of Present Illness - General Chief Complaint: Pain Stated Complaint: CHEST PAIN Time Seen by Provider: 10/13/18 19:02 - History of Present Illness Initial Comments: 10/13/18 20:37 33yo F hx HTN presents from home c/o high BP and headache. Pt has had HTN for 1.5yrs since she was pre-eclamptic in , . Pt takes nifedipine in the AM and edarbi (ARB) in the PM, pt has not taken edarbi today yet, pt states she is noncompliant with her medications. Pt c/o frontal pressure-type headache of gradual onset since last night 2300, associated with palpitations, lightheadedness, sinus pressure, and photophobia. Pt took 2 motrins with some improvement. Pt states sx have improved now except for slight photophobia. Pt states this is the exact same as her usual headaches including the associated sx which she gets approx 2x/mo for 1.5yrs. Pt normally takes motrin for them with resolution of sx. Pt only came in today because she was concerning about high BP of 155/115. Pt states she went to a sewer once and was prescribed a beta-chris to slow her heart rate but she stopped taking it because she didn't want to take 3 medications. Pt has been here multiple times for same presentation, last 02/14/18, always with negative workup and resolution of sx. Refuses pain meds or IVF here. Denies vision changes other than photophobia, blurry vision, vertigo, CP, SOB, abdominal pain, dysuria, hematuria , D/C, blood in stool, back pain, neck pain, fever, chills, numbness/tingling, weakness, rhinorrhea, congestion, cough, allergies, smoking, drug use. PCP - Annabi Past History - Past Medical History Allergies/Adverse Reactions: Allergies Allergy/AdvReac Type Severity Reaction Status Date / Time labetalol Allergy Severe Hives Verified 10/13/18 18:13 AVACADO Allergy Severe HIVES, Uncoded 10/13/18 18:13 SWOLLEN TONGUE CASHEWS Allergy Severe HIVES, Uncoded 10/13/18 18:13 SWOLLEN TONGUE DUST Allergy ITCHING, Uncoded 10/13/18 18:13 HIVES Home Medications: Ambulatory Orders Azilsartan Medoxomil [Edarbi] 80 mg PO DAILY 02/14/18 Nifedipine [Procardia Xl] 60 mg PO DAILY 02/14/18 Anemia: No Asthma: No Cancer: No Cardiac Disorders: No CVA: No COPD: No CHF: No DVT: No Dementia: No Diabetes: No GI Disorders: No Disorders: No HTN: Yes Hypercholesterolemia: No Liver Disease: No Seizures: No Thyroid Disease: No - Surgical History Abdominal Surgery: No Appendectomy: No Cardiac Surgery: No Cholecystectomy: No Lung Surgery: No Neurologic Surgery: No Orthopedic Surgery: No - Reproductive History Cervical CA: No Dysfunctional Uterine Bleeding: No Ectopic : No Endometrial CA: No Polycystic Ovaries: No - Immunization History Immunization Up to Date: Yes - Suicide/Smoking/Psychosocial Hx Smoking History: Never smoked Have you smoked in the past 12 months: No Hx Alcohol Use: No Drug/Substance Use Hx: No Substance Use Type: None Hx Substance Use Treatment: No Review of Systems - Review of Systems Comments:: 10/13/18 23:49 Constitutional: Negative for chills, fever, fatigue. HENT: Positive for sinus pressure. Negative for sore throat, rhinorrhea, congestion. Eyes: Positive for photophobia. Negative for blurry vision. Respiratory: Negative for shortness of breath, cough, and wheezing. Cardiovascular: Positive for palpitations. Negative for chest pain and leg swelling. Gastrointestinal: Negative for abdominal pain, blood in stool, constipation, diarrhea, nausea, and vomiting. Genitourinary: Negative for dysuria, flank pain, and hematuria. Musculoskeletal: Negative for myalgias, back pain, and neck pain. Skin: Negative for rash. Neurological: Positive for light-headedness and headache. Negative for vertigo, syncope, weakness, numbness. Psychiatric/Behavioral: Negative for behavioral problems and confusion. *Physical Exam - Vital Signs Last Vital Signs Temp Pulse Resp BP Pulse Ox 98 F 106 H 18 153/110 H 100 10/13/18 18:11 10/13/18 18:49 10/13/18 18:49 10/13/18 18:49 10/13/18 18:49 - Physical Exam Comments: 10/13/18 23:50 Gen: Alert, NAD, comfortable-appearing. HEENT: +frontal and maxillary b/l sinus TTP. PERRL, EOMI, MMM, NCAT. No conjunctival pallor. Sclera are non-icteric. CV: Regular rate and rhythm. No murmurs, rubs, or gallops. PULM: No resp distress. CTAB, no wheezes, rales, or rhonchi. ABD: soft, NT/ND, no rebound tenderness or guarding, no CVA tenderness. BACK: No TTP of c/t/l-spine. No step-offs or deformities. MSK: No bony deformities. 2+ pulses in all extremities. NEURO: AAOx3. PERRL. CN 2-12 intact. 5/5 strength in all extremities. Sensation to light touch intact in all extremities. No pronator drift. No dysmetria. No dysdiadochokinesia. No abnormal nystagmus. No skew deviation. Normal gait. EXTREMITIES: No cyanosis. No clubbing. No edema. No calf tenderness. PSYCH: Normal mood and thought pattern. SKIN: Warm and dry. Normal capillary refill. No rashes. No jaundice. Heart Score/ECG Review - ECG Impressions Comment:: 10/13/18 23:36 1817: NSR, 92bpm, normal axis, QTc 432ms, no ST elevations or depressions, TWIs in III/aVF. No significant changes from prior EKG 02/14/18 ED Treatment Course - LABORATORY CBC & Chemistry Diagram: 10/13/18 20:13 10/13/18 20:13 Medical Decision Making - Medical Decision Making 10/13/18 20:45 33yo F hx HTN presents from home c/o high BP and headache. Pt has had HTN for 1.5yrs since she was pre-eclamptic in , . Pt takes nifedipine in the AM and edarbi (ARB) in the PM, pt has not taken edarbi today yet, pt states she is noncompliant with her medications. Pt c/o frontal pressure-type headache of gradual onset since last night 2300, associated with palpitations, lightheadedness, sinus pressure, and photophobia. Pt took 2 motrins with some improvement. Pt states sx have improved now except for slight photophobia. Pt states this is the exact same as her usual headaches including the associated sx which she gets approx 2x/mo for 1.5yrs. Pt normally takes motrin for them with resolution of sx. Pt only came in today because she was concerning about high BP of 155/115. Pt states she went to a sewer once and was prescribed a beta-chris to slow her heart rate but she stopped taking it because she didn't want to take 3 medications. Pt has been here multiple times for same presentation, last 02/14/18, always with negative workup and resolution of sx. Refuses pain meds or IVF here. Denies vision changes other than photophobia, blurry vision, vertigo, CP, SOB, abdominal pain, dysuria, hematuria , D/C, blood in stool, back pain, neck pain, fever, chills, numbness/tingling, weakness, rhinorrhea, congestion, cough, allergies. Slightly tachycardic 100s, hypertensive 153/110, no hypoxia or tachypnea, afebrile, neurologically intact, mild sinus TTP. HTN and tachycardia most likely due to medication noncompliance - give her usual dose of bystolic and reassess. Also consider infection, anemia, metabolic derangement, cardiac etiology, or thyroid issue - r/o with labs and EKG. Lack of neurologic deficit, lack of trauma, resolution of headache, supple neck, and lack of fever not concerning for SAH, stroke, intracranial pathology, or meningitis - no further testing indicated. Headache consistent with her chronic headaches x1.5 yrs, started when her HTN started (during when she was pre-eclamptic). Most likely tension vs migraine vs sinus headache - pt refuses pain meds or IVF ; obtain CT sinus to r/o sinusitis. -EKG -CBC, CMP, UA/UC, TSH, cardiac profile -CT sinuses -Pt refused IVF or pain meds -Bystolic 10mg (her prescribed dose) -Dispo: likely d/c home pending w/u 10/13/18 21:16 Tachycardia resolved, HR 92, BP 160/116, denies MCGOVERN or any complaints at this time, wants to go home. Labs reviewed. Of note, WBC 13.9, but pt afebrile and has no complaints. negative. 10/13/18 23:38 CT showed chronic paranasal sinus changes L>R. No acute findings. Pt feels better now. Denies complaints. Will dc home with supportive treatment and f/u with ENT, cardiology, neurology, and PCP. Return precautions given. Pt understands all dc instructions and all questions were answered. *DC/Admit/Observation/Transfer Diagnosis at time of Disposition: Headache, Hypertension - Discharge Dispostion Disposition: HOME Condition at time of disposition: Improved Decision to Admit order: No - Referrals Referrals: Jose Loya MD [Primary Care Provider] - Hans Garza DO [Staff Physician] - Ishan Hou MD [Staff Physician] - Kulwant Thomson MD [Staff Physician] - - Patient Instructions Printed Discharge Instructions: DI for High Blood Pressure, DI for Headache Additional Instructions: You have been seen in the Emergency Department for your headache and elevated blood pressure. Your labs and EKG shows no signs concerning for an emergent condition. There are many causes of headaches and we are uncertain of your cause , but there are a few things that are most likely contributing to them. First, you need to take all of your medications as prescribed, follow a low sodium diet , and exercise. Elevated blood pressure and heart rate can cause your symptoms, so it is important to control them. Second, your vision is decreased and you need to see an residency director for glasses as straining your eyes can cause headaches. Third, you have some chronic sinus changes on your CT scan so this could potentially be contributing and should be further evaluated by an ENT (ear /nose/throat) doctor. We have given you a referral for an ENT doctor Dr Thomson - call his office to make a follow-up appointment within 1 week. Follow-up with Dr. Loya within 1 week. Also call your sewer and follow- up with him within 1 week. We have given you a referral to another sewer if you do not want to go to your current one. Finally, we have given you a referral to a Neurologist for further evaluation of your headaches - call the office and set up an appointment for this week. Return to the ED immediately if you experience pain not controlled by over the counter medications, dizziness, numbness/tingling, weakness, fever, or any other new or worsening symptom. - Post Discharge Activity
[2018-10-13] MEDS ORDERED: NEBIVOLOL 10 MG TABLET (FP) PO ONE (20:24)
[2018-10-13 20:47] LABS: BASO % 0.4 % (0-2.0); EOS % 7.6 % (0-4.5); HEMOGLOBIN 13.9 GM/dL (10.7-15.3); LYMPH % 27.1 % (8-40); MCH 26.6 pg (25.7-33.7); MCHC 33.2 g/dl (32.0-36.0); MEAN PLT VOLUME 8.6 fl (7.5-11.1); MONO % 10.1 % (3.8-10.2); NEUT % 54.8 % (42.8-82.8); PLATELET COUNT 321 K/MM3 (134-434); RBC 5.25 M/mm3 (3.60-5.2); WHITE BLOOD COUNT 13.9 K/mm3 (4.0-10.0)
[2018-10-13 20:47] LABS: PH,URINE 6.5 (5.0-8.0); URINE APPEARANCE CLEAR; URINE BILIRUBIN NEGATIVE (NEGATIVE); URINE COLOR YELLOW; URINE GLUCOSE (UA) NEGATIVE (NEGATIVE); URINE KETONE NEGATIVE (NEGATIVE); URINE LEUK ESTERASE NEGATIVE (NEGATIVE); URINE NITRITE NEGATIVE (NEGATIVE); URINE PROTEIN NEGATIVE (NEGATIVE); URINE UROBILINOGEN 0.2 mg/dL (0.2-1.0)
--- NOTE | 2018-10-13 20:52 | PDOC ---
Documentation entered by Duncan Munson SCRIBE, acting as scribe for Soledad Vidal MD. Soledad Vidal MD: This documentation has been prepared by the angeliae, Duncan Munson SCRIBE, under my direction and personally reviewed by me in its entirety. I confirm that the documentation accurately reflects all work, treatment, procedures, and medical decision making performed by me. Attending Attestation - Resident Resident Name: Andree Montes - ED Attending Attestation I have performed the following: I have examined & evaluated the patient, The case was reviewed & discussed with the resident, I agree w/resident's findings & plan - HPI HPI: 10/13/18 20:20 Patient is a 33 year old female with a significant past medical history of HTN and frequent Migraines who presents to the with a Migraine. Patient reports that last night she had a migraine which was described as pressure, frontal, associated with palpitations, dizziness, and photophobia. Patient notes that this is similar to her usual migraines but when she noticed her BP to be elevated it prompted the visit to the ED. Allergies: Labetalol, Avocado, Cashews, Dust PCP: Dr. Loya - Physicial Exam PE: 10/13/18 20:24 GENERAL: Awake, alert, and fully oriented, in no acute distress HEAD: No signs of trauma EYES: +20/40 vision B/L. PERRLA, EOMI, sclera anicteric, conjunctiva clear ENT: Auricles normal inspection, hearing grossly normal, nares patent, oropharynx clear without exudates. Moist mucosa NECK: Normal ROM, supple, no lymphadenopathy, JVD, or masses LUNGS: Breath sounds equal, clear to auscultation bilaterally. No wheezes, and no crackles HEART: Regular rate and rhythm, normal S1 and S2, no murmurs, rubs or gallops ABDOMEN: Soft, nontender, normoactive bowel sounds. No guarding, no rebound. No masses EXTREMITIES: Normal range of motion, no edema. No clubbing or cyanosis. No cords, erythema, or tenderness NEUROLOGICAL: Cranial nerves II through XII grossly intact. Normal speech, normal gait SKIN: Warm, Dry, normal turgor, no rashes or lesions noted. - Medical Decision Making 10/13/18 20:51 Pt has worse than 20/40 vision bilaterally; pt is non compliant with her BP meds , and pt has HTN and headache. SHe has no sinusitis. She took motrin for the MCGOVERN. SHe will be given her bystolic dose that was prescribed by her PMD and she will be sent home once all her labs come back. She hasn't taken her ARB dose today. She is stable for discharge home. Her EKG is unchanged from previous. 10/13/18 22:14 Pt has normal exam; normal labs; WBC slight elevation. She has a maxillary sinusitis. She will be discharged home. 10/13/18 23:07 Patient Name: SALBADOR PEÑA THIS IS A PRELIMINARY REPORT FROM [facility] DATE OF SERVICE: 2018-10-13 21:47:49 IMAGES: [id number] EXAM: SINUS CT W/O CONTRAST study performed unenhanced. Axial images obtained followed by coronal and sagittal reconstructions. HISTORY: 33-year-old female with sinus headache COMPARISON: None. Findings: Mucoperiosteal thickening bilateral maxillary sinuses, left greater than right. Mucous retention cyst present within the left maxillary sinus. The sphenoid sinuses, ethmoidal air cells and frontal sinuses are air-filled. Mastoid air cells, external ear canals middle ear cavities are air-filled. The bony margins of the paranasal sinuses intact. No soft tissue infiltration of the periorbital fat noted. The membranous and bony nasal septum is intact and midline. The right ostiomeatal complex is patent. Left ostiomeatal complex obscured by mucoperiosteal thickening. Nasal lacrimal apparatus intact bilaterally. Nasal cavity normal in appearance. Impression: 1. Chronic paranasal sinus changes, left greater than right maxillary sinus. Soft tissue obscuration left ostiomeatal complex. Follow with ENT as needed
[2018-10-13 20:54] LABS: ALBUMIN 4.4 g/dl (3.4-5.0); BILIRUBIN,TOTAL 0.4 mg/dL (0.2-1); BLOOD UREA NITROGEN 6.9 mg/dL (7-18); CALCIUM 9.4 mg/dL (8.5-10.1); CREATININE 0.7 mg/dL (0.55-1.3); TOT PROT 8.4 g/dl (6.4-8.2)
[2018-10-13 22:27] VITALS: TEMP 98.1
[2018-10-13 23:17] VITALS: BP 153/98; PULSE 76
--- NOTE | 2018-10-15 14:51 | EKG ---
Test Reason : Blood Pressure : / mmHG Vent. Rate : 092 BPM Atrial Rate : 092 BPM P-R Int : 132 ms QRS Dur : 086 ms QT Int : 350 ms P-R-T Axes : 065 064 011 degrees QTc Int : 432 ms NORMAL SINUS RHYTHM POSSIBLE LEFT ATRIAL ENLARGEMENT NONSPECIFIC T WAVE ABNORMALITY ABNORMAL ECG WHEN COMPARED WITH ECG OF 14-FEB-2018 12:51, NO SIGNIFICANT CHANGE WAS FOUND Confirmed by COLLETTE WAYNE, JONATHAN ([id number]) on 10/15/2018 2:51:03 PM Referred By: Confirmed By:JONATHAN MURDOCK MD
== END 2018-10-13 23:17 | disposition home or self-care (01) ==
LOC: JER 18:07
DX: I10 Essential (primary) hypertension (principal); R07.89 Other chest pain
CPT/HCPCS: 36415; 70486-TC; 80053; 81003; 82550; 82553; 84443; 84484; 84703; 85025; 87086; 93005; 93010; 99283-25